=== PATIENT | male | born 1960 | race African-American/Black ===

== ENCOUNTER → 2022-03-31 | Day surgery (SDC) | payer OTHER ==
[~2022-03-31] VITALS: Ht 165.1 cm; Wt 104.3 kg
[~2022-03-31] MED LIST: COZAAR100 MG PO; HCTZ25 MG PO; LOPRESSOR50 MG PO; SIMVASTATIN40 MG PO
== END | disposition home or self-care (01) ==
LOC: FAS 03-24 08:00
DX: K63.5 Polyp of colon (principal); K57.30 Diverticulosis of large intestine without perforation or abscess without bleeding; I10 Essential (primary) hypertension; Z86.010 Personal history of colon polyps
CPT/HCPCS: J2704